=== PATIENT | female | born 1995 | race Caucasian/White ===

== ENCOUNTER → 2018-12-03 | Outpatient (CLI) | payer BC, MEDICAID ==
[~2018-12-03] MED LIST: ALBU8.5H2 IH; BUPR1FIL3; BUPR1FIL3 SL; CEFP500T4 PO; DCS100C PO; FLT05NA16 NSEACH; FLUO20CA42; GABA600T2 PO; GBPN100C; HYDR-3720 PO; IBP800T PO; LITH300C; LORA1TAB PO; PNV1CAPS13 PO; TPR25T PO; WELLBUTRIN; ZLP10T PO
--- NOTE | 2018-12-03 11:12 | Diagnostic Imaging Report ---
PROCEDURE: US Non-ob pelvis comp/trans. INDICATION: Right-sided pelvic pain TECHNIQUE: Multiple real time nguyen scale sonographic images were obtained of the pelvis transabdominally and transvaginally. CORRELATION STUDY: None FINDINGS: UTERUS: 7.5 x 4.5 x 3.9 cm. The uterus appears unremarkable. ENDOMETRIUM: Largely obscured by an apparent intrauterine contraceptive device. This results in rather significant amount of shadowing. RIGHT OVARY: 2.5 x 2.6 x 1.7 cm The right ovary has an unremarkable appearance. No concerning mass. Normal blood flow. LEFT OVARY: Not visualized, likely obscured by overlying bowel gas. There is a small amount of fluid in the posterior pelvic cul-de-sac IMPRESSION: 1. Intrauterine conceptive device, appearing to be in likely satisfactory position. 2. Small amount of pelvic fluid, within physiologic range. 3. Nonvisualization left ovary, likely obscured by overlying bowel gas. Dictated by: Dictated on workstation # [id number]
== END ==
LOC: RAD 10:01
PROVIDERS: ATTEND Obstetrics & Gynecology
DX: G89.29 Other chronic pain (principal); R10.2 Pelvic and perineal pain; R18.8 Other ascites; Z97.5 Presence of (intrauterine) contraceptive device
CPT/HCPCS: 76830; 76856

== ENCOUNTER → 2019-08-13 | Outpatient (CLI) | payer BC ==
--- NOTE | 2019-08-13 14:10 | Diagnostic Imaging Report ---
INDICATION: survey. TECHNIQUE: Multiple real-time grayscale images were obtained over the gravid uterus. COMPARISON: None. FINDINGS: There is a single live fetus in a transverse presentation with the head to the maternal right. The heart rate was recorded at 138 BPM. The placenta is posterior with no previa seen. The amniotic fluid volume is normal. The cervical length is 3.7 cm. The bladder, stomach, and brain are unremarkable. The kidneys are poorly visualized. In addition, the four-chamber heart, spine, and three-vessel cord with its insertion were poorly visualized due to patient body habitus. MEASUREMENTS: Biometrical measurements are as follows: Biparietal 4.79 cm, age 20 weeks 4 days. Head circumference 18.23 cm, age 20 weeks 5 days. Abdominal circumference 15.07 cm, age 20 weeks 3 days. Femur length 3.25 cm, age 20 weeks 1 days. Sonographic estimate age: 20 weeks 4 days. Sonographic estimated date of delivery: 12/27/19. Estimated Weight: 343 gm (+/- 50 gm). LMP percentile: 30%. heart rate: 138 beats per minute. number: 1 of 1. IMPRESSION: Single live IUP of 20 weeks 4 days gestational age with an estimated date of confinement sonographically of 12/27/2019. The survey is compromised due to patient body habitus. Followup could be performed. Dictated by: Dictated on workstation # [id number]
== END ==
LOC: RAD 09:38
PROVIDERS: ATTEND Obstetrics & Gynecology
DX: Z36.9 Encounter for antenatal screening, unspecified (principal); Z3A.20 20 weeks gestation of pregnancy
CPT/HCPCS: 76805

== ENCOUNTER 2019-12-17 05:34 | Outpatient (RCR) | payer BC ==
[~2019-12-17] VITALS: Ht 160 cm; Wt 131.8 kg
[~2019-12-17 05:34] MED LIST changes: +BUPR8TAB SL; +GBPN600T PO; +LURA40TA3 PO; +ONDN4T PO; +PNV1TABL9 PO; +RT-ALBUINH IH
[2019-12-20] MEDS ORDERED: OXYC1TAB87 PO (07:50)
[2019-12-20] MEDS ORDERED: DCS100C PO (07:50)
[2019-12-20] MEDS ORDERED: IBUP-844 PO (07:50)
== END 2019-12-17 10:30 | disposition home or self-care (01) ==
LOC: PREOP 05:34
PROVIDERS: ATTEND Obstetrics & Gynecology
DX: Z01.812 Encounter for preprocedural laboratory examination (principal); Z20.828 Contact with and (suspected) exposure to other viral communicable diseases
CPT/HCPCS: 87635

== ENCOUNTER 2019-12-20 06:04 | Inpatient (IN) | payer BC ==
[~2019-12-20] VITALS: Ht 160 cm; Wt 138.3 kg
[2019-12-20] VITALS (10 sets, daily range): BP systolic 110–142; BP diastolic 62–82
[2019-12-20] MEDS ORDERED: METOCLOPRAMIDE INJ 10 MG/2 ML (REGLAN) ONE (06:12)
[2019-12-20] MEDS ORDERED: CITRIC ACID/SOB CIT (BICITRA) 30 ML UDC ONE (06:12)
[2019-12-20] MEDS ORDERED: ceFAZolin 2 GM IV Premixed 50 ML ONE (06:12)
[2019-12-20] MEDS ORDERED: LACTATED RINGERS 1,000 ML IV ONE (06:13)
[2019-12-20] MEDS ORDERED: FAMOTIDINE 20MG/2ML IV (PEPCID) ONE (06:13)
--- NOTE | 2019-12-20 06:21 | NUR ---
VIPUL MARTÍNEZ presented to unit via ambulatory from home, accompanied by s.o., with c/o PREVIOUS c/s. VIPUL MARTÍNEZ weighed, gowned, voided, and to bed. EFHM and TOCO applied, VS taken. VIPUL MARTÍNEZ oriented to bed controls, call light, TV, heat, and A/C controls.
[2019-12-20] MEDS ORDERED: LACTATED RINGERS 1,000 ML IV PRN ×2 (06:27)
[2019-12-20] MEDS ORDERED: CATHETER FLUSH 10 ML SYR IV PRN (06:30)
[2019-12-20] MEDS ORDERED: METOCLOPRAMIDE INJ 10 MG/2 ML (REGLAN) IV ONE (06:30)
[2019-12-20] MEDS ORDERED: FAMOTIDINE 20MG/2ML IV (PEPCID) IV ONE (06:30)
[2019-12-20] MEDS ORDERED: CITRIC ACID/SOB CIT (BICITRA) 30 ML UDC PO ONE (06:30)
[2019-12-20] MEDS ORDERED: ceFAZolin 2 GM IV Premixed 50 ML IV ONE (06:30)
--- NOTE | 2019-12-20 06:36 | NUR ---
Dr. Estes at bedside.
[2019-12-20] MEDS ORDERED: fentaNYL INJECTION 100 MCG/2 ML AMP ONE (06:45)
[2019-12-20] MEDS ORDERED: OXYTOCIN PRE-MIX DRIP 1,000 ML IV ONE (06:45)
--- NOTE | 2019-12-20 07:10 | NUR ---
this RN into pt's room. pt sitting HF, rocking back & forth. s.o. attempting to calm/comfort pt. lab @ bedside, waiting to draw admission labs. cool wash cloths applied to head, neck by RN. 0619- up to JOSELUIS.
--- NOTE | 2019-12-20 07:17 | History & Physical-OB ---
OB - Chief Complaint & HPI Date/Time Date of Admission: Date of Admission: Dec 20, 2019 at 06:04 Date seen by a Provider: Dec 20, 2019 Time Seen by a Provider: 07:05 (07:05) Chief Complaint/History OB-Reason for Admission/Chief: Section Hx : 2 Hx Para: 1 Expected Date of Delivery: Dec 27, 2019 Gestational Age in Weeks: 39 Indication for : desires repeat Admission Nurse Assessment Rev: Yes History of Labs Opos Antibody neg RI RPR NR HBsAg NR HIV NR GC neg GBS neg Allergies and Home Medications Allergies Coded Allergies: Penicillins (Verified Allergy, Unknown, Hives, 12/20/19) amoxicillin (Verified Allergy, Unknown, Hives, 12/20/19) codeine (Verified Allergy, Unknown, 12/20/19) Home Medications Albuterol Sulfate 1 Puff Puff, 2 PUFF IH Q4H PRN for WHEEZING, (Reported) 1 PUFF = 90 MCG Buprenorphine HCl 8 Mg Tab.subl, 16-24 MG SL DAILY, (Reported) take 2-3 (8mg) tabs Gabapentin 600 Mg Tablet, 600 MG PO QID, (Reported) Lurasidone HCl 40 Mg Tablet, 40 MG PO HS, (Reported) Ondansetron HCl 4 Mg Tab, 4 MG PO Q6H PRN for NAUSEA/VOMITING, (Reported) Pnv Cmb#21/Iron/Folic Acid 1 Each Tablet, 1 EACH PO DAILY, (Reported) Patient Home Medication List Home Medication List Reviewed: Yes OB - History Hx of Present Care: Yes Ultrasounds: Normal mid trimester US Obstetrical Complications: None Medical Complications: None Delivery History Hx Blood Disorders: No Adverse Rxn to Tranfusion: No Patient Past Medical History n/a Social History/Family History HIV/AIDS: No Recent Infectious Disease Expo: No Sexually Transmitted Disease: No Alcohol Use: Denies Use Recreational Drug Use: No (AT TIMES FOR FUN, NOT LIKE THIS PER SISTER) Immunizations Tetanus Booster (TDap): Unknown Date of Influenza Vaccine: Nov 27, 2019 OB - Admission Exam Physical Exam Vitals: Vital Signs 12/20/19 06:45 Temp 36.1 Pulse 85 Resp 20 Pulse Ox 94 O2 Delivery Room Air HEENT: NCAT Heart: Rhythm Normal Lungs: Clear Abdomen: Gravid Extremities: Normal Reflexes: Normal Membranes: Intact Heart Rate: 130's Accelerations: Accelerations Present Decelerations: No Decelerations Short Term Variability: Present Residential Variability: Average (6-25) Contractions on Admission: 6-10 Minutes Apart Intensity: Mild Labs Laboratory Tests Test 12/20/19 06:45 Range/Units OB - Assessment/Plan/Diagnosis Assessment Assessment: section Admission Dx 23 yo @ 39 week Previous Tobacco use in Bipolar disorder Hx of Marijuana use in BMI 54 Admission Status: Inpatient Order (span 2 midnights) Reason for Inpatient Admission: Repeat at 39 weeks Plan Plan: Section NAMRATA PEARSON DO Dec 20, 2019 07:17
[2019-12-20] MEDS ORDERED: KETAMINE/NaCl 50 MG/5 ML SYRINGE (ED ONLY) ONE (07:28)
[2019-12-20 07:30] LABS: AMPHETAMINE SCREEN, URINE NEGATIVE (NEGATIVE); BARBITURATE SCREEN URINE NEGATIVE (NEGATIVE); BENZODIAZEPINES SCREEN URINE NEGATIVE (NEGATIVE); CANNABINOID SCREEN, URINE POSITIVE (NEGATIVE); COCAINE SCREEN URINE NEGATIVE (NEGATIVE); METHADONE STAT NEGATIVE (NEGATIVE); METHAMPHETAMINE SCREEN URINE S NEGATIVE (NEGATIVE); OPIATE SCREEN URINE NEGATIVE (NEGATIVE); OXYCODONE STAT POSITIVE (NEGATIVE); PROPOXYPHENE STAT NEGATIVE (NEGATIVE); TRICYCLIC ANTIDEPRESSANTS SCRE NEGATIVE (NEGATIVE)
[2019-12-20] MEDS ORDERED: ONDANSETRON 4 MG/2 ML (SDV) Z0FRAN IVP PRN (07:30)
[2019-12-20] MEDS ORDERED: MEASLES,MUMPS,RUBELLA 1 EA INJ SC SCH (07:30)
[2019-12-20] MEDS ORDERED: TETANUS,DIPTH,PERTUSS P/F (BOOSTRIX) 0.5 ML VIAL IM SCH (07:30)
--- NOTE | 2019-12-20 07:30 | NUR ---
lab here. admission labs collected. pt tolerated well.
[2019-12-20 07:42] LABS: BASOPHILS % (AUTO) 0 % (0-10); EOSINOPHILS # (AUTO) 0.2 10^3/uL (0.0-0.3); EOSINOPHILS % (AUTO) 2 % (0-10); HEMATOCRIT 38 % (35-52); HEMOGLOBIN 12.9 g/dL (11.5-16.0); LYMPHOCYTES # (AUTO) 2.4 10^3/uL (1.0-4.0); LYMPHOCYTES % (AUTO) 19 % (12-44); MEAN CORPUSCULAR HEMOGLOBIN 31 pg (25-34); MEAN CORPUSCULAR HGB CONC 34 g/dL (32-36); MEAN CORPUSCULAR VOLUME 92 fL (80-99); MEAN PLATELET VOLUME 9.9 fL (9.0-12.2); MONOCYTES # (AUTO) 0.6 10^3/uL (0.0-1.0); MONOCYTES % (AUTO) 5 % (0-12); NEUTROPHILS # (AUTO) 8.9 10^3/uL (1.8-7.8); NEUTROPHILS % (AUTO) 73 % (42-75); PLATELET COUNT 284 10^3/uL (130-400); WHITE BLOOD COUNT 12.2 10^3/uL (4.3-11.0)
--- NOTE | 2019-12-20 07:48 | Discharge Inst-Women's Service ---
Discharge Inst-Women's Serv Depart Medication/Instructions New, Converted or Re-Newed RX: RX on Chart Final Diagnosis POD 2 RLTCS Problems Reviewed?: Yes Consults/Follow Up Additional Follow Up: Yes Orders/Referrals Dr. Marie in 7-10 days and in 6 weeks Activity Activity: Activity as Tolerated Driving Instructions: No Driving for 1 Week NO SMOKING: NO SMOKING Nothing Inside Vagina: No Douching, No [place], No Tampons Diet Discharge Diet: No Restrictions Symptoms to Report to : Bleeding Excessive, Pain Increased, Fever Over 101 Degrees F, Vaginal Bleeding Increase, Questions/Concerns For Any Problems or Questions: Contact Your Physician Skin/Wound Care Infection Signs and Symptoms: Increased Redness, Foul Odor of Wound, Increased Drainage, Skin Itchy or Has a Rash, Increased Swelling, Temperature Above 101 F Operative Area Clean and Dry: Keep Incision Clean/Dry Stitches/[place]/Dermabond: Dermabond, Care of Stitches Bathing Instructions: NAMRATA Hunter DO Dec 20, 2019 07:48
--- NOTE | 2019-12-20 07:48 | NUR ---
monitors dc'd. pt ambulated to OB c/s room with OR staff @ side. monitor tracing reviewed. [id number]'s. difficulty tracing FHR r/t frequent maternal position changes and abd size. no ctx's noted.
[2019-12-20] MEDS ORDERED: OXYC1TAB87 PO (07:50)
[2019-12-20] MEDS ORDERED: DCS100C PO (07:50)
[2019-12-20] MEDS ORDERED: IBUP-844 PO (07:50)
[2019-12-20] MEDS: KETOROLAC 30 MG/ML VIAL IV SCH ×3 (08:50→21:09)
--- NOTE | 2019-12-20 09:55 | NUR ---
cancino catheter dc'd. 400cc urine noted. jose-care offered. FFu/0, moderate rubra noted. no clots expressed. v-pad in place.
--- NOTE | 2019-12-20 10:05 | NUR ---
pt transferred to room 308 via bed with this RN, and s/o @ side. familiarized with room surroundings. call light within reach.
[2019-12-20] MEDS: OXYTOCIN PRE-MIX DRIP 500 ML IV SCH (10:46)
[2019-12-20] MEDS: DOCUSATE SODIUM 100 MG (COLACE) CAP PO SCH ×2 (10:47→21:08)
[2019-12-20] MEDS: ENOXAPARIN 60 MG/0.6 ML (LOVENOX) SYR SC SCH ×2 (10:47→22:35)
[2019-12-20] MEDS: oxyCODONE/APAP 5/325MG (PERCOCET 5) TABLET PO PRN ×3 (10:48→19:53)
[2019-12-20] MEDS ORDERED: BUPIVACAINE 0.25% 30 ML (SENSORCAINE) VIAL ONE (11:33)
[2019-12-20] MEDS ORDERED: ONDANSETRON 4 MG/2 ML (SDV) Z0FRAN ONE (11:34)
[2019-12-20] MEDS ORDERED: KETOROLAC 30 MG/ML VIAL ONE (11:34)
[2019-12-20] MEDS ORDERED: CATHETER FLUSH 10 ML SYR IV SCH (14:00)
--- NOTE | 2019-12-20 14:01 | NUR ---
CM/SS visited with patient for social service consult. This sw does not believe a DCF report is warranted at this time. Home: The patient lives at home with her and her mother. She states they have been setting up for the baby all last week. Substance use: The patient reports that she has used [facility]. According to patient her last use was last week. The patient was positive for opioids; however, she was prescribed percocet. This is being managed by her with a lock box and hall. The patient is set up with [facility] intensive outpatient treatment. She has a zoom appointment set up for when she is discharged from the hospital. The patient follows with Dr. Johnson in [place] who is prescribing suboxone. 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 Patient verbalized that she is very motivated to not use substances. The patient reports it was a lapse due to complication family dynamics and health. Baby Supplies: Patient reports that she and her have everything that she needs. They recently attended a Pre-jadyn class and got a new car seat. They have diapers, formula, pack-n-play, bassinet, and clothes. Resources: patient is set up with [facility]. CM/SS provided information on [facility] and [facility]. They are interested in [facility] but want to look it over before having this sw make referral. No further needs.
--- NOTE | 2019-12-20 14:10 | OPERATIVE REPORT ---
DATE OF SERVICE: PREOPERATIVE DIAGNOSIS: 1. A 23-year-old G2, P1 at 39 weeks gestation. 2. Previous section. 3. Morbid obesity. 4. Bipolar disorder. 5. History of marijuana use during . POSTOPERATIVE DIAGNOSES: 1. A 23-year-old G2, P1 at 39 weeks gestation. 2. Previous section. 3. Morbid obesity. 4. Bipolar disorder. 5. History of marijuana use during . PROCEDURE: Repeat low transverse section. SURGEON: Tutu Pearson DO BUSINESS SERVICES ASSOCIATE: Estefany Cabral DNP, was necessary for manipulation and retraction throughout the procedure. ANESTHESIA: Spinal. ESTIMATED BLOOD LOSS: 500 mL. URINE OUTPUT: 50 mL clear at the end of the procedure. FLUIDS: 2000 mL lactated Ringer's solution. FINDINGS: A live male infant weighing 5 pounds even, Apgars of 8 and 9. Grossly normal appearing uterus, bilateral fallopian tubes and ovaries. SPECIMEN SENT: Placenta. INDICATIONS FOR PROCEDURE: This 23-year-old female is a patient who had sought care in my office. Her care was complicated by the use of Latuda for her bipolar disorder as well as tobacco use during the . The patient also had a significant weight gain and pregestational obesity, which progressively got worse throughout the as well. I discussed with the patient in detail throughout her care, the risk of repeat and risks of the procedure were discussed with the patient again in the preoperative area including risk of bleeding, infection, damage to surrounding structures including, but not limited to bowel, bladder, ureter, kidneys, possible need for reoperation, postoperative complications that may occur, risk from anesthesia, recovery timeframe and even . Everything was discussed with the patient in detail, consent was obtained in the preoperative area, the patient was taken to the operating room. OPERATIVE REPORT IN DETAIL: Once in the operating room, spinal anesthesia was found to be adequate, placed in supine position with leftward tilt, prepped and draped in normal sterile fashion. Timeout was performed and anesthesia was tested. I then make a Pfannenstiel skin incision through the previously existing scar using knife and carried down to the underlying fascia using Bovie cautery. The fascial incision was extended laterally using Bovie cautery. The superior aspect of fascial incision was then grasped with Porfirio clamps, tented upward and dissected off the underlying rectus muscles. The inferior aspect of the fascial incision was then grasped with Porfirio clamps, tented up and dissected off the underlying rectus muscles. Rectus muscles were then dissected down the midline using Hooks scissors, which exposed the peritoneum, which I entered bluntly and extended using blunt traction. Hemanth ring retractor was placed in the peritoneal incision, which offers excellent lateral sidewall retraction. I then identified the lower uterine segment, which was found to be thinned out and make a low transverse incision to the vesicouterine peritoneum and bluntly dissected off the lower uterine segment. I then proceeded with myotomy until membranes were visualized, at which point, I extended the uterine incision laterally and superiorly using bandage scissors. The infant was found in the breech presentation after amniotomy was performed and clear fluid was noted. The 's buttocks was elevated up the incision where it was delivered through the incision. The arms were delivered by sweeping them across the chest and the head is delivered by elevating the body and expressing flexion through the incision. Once the was delivered. Nares and oropharynx were bulb suctioned. The cord was doubly clamped and cut and was handed off to waiting nurses in attendance. Cord blood was collected, 3-vessel cord with intact placenta was delivered spontaneously thereafter. IV Pitocin was initiated to facilitate uterine contraction. Uterine fundus became firmer with bimanual massage. The uterus was then exteriorized and cleared of all endometrial clots and debris. I then proceeded with closing the uterine incision using 0 Vicryl suture in a running locked fashion. Second layer of imbricating 0 Monocryl was placed. Excellent hemostasis noted after doing this. I then placed the uterus back in the pelvis and copiously irrigated the pelvis using normal saline. There was no active bleeding noted from any of my dissection planes. I placed Interceed antiadhesive over my low transverse incision. I then removed the Hemanth ring retractor. I then proceeded to closing the peritoneum using 3-0 Vicryl suture in running fashion. Rectus muscles were reapproximated using 3-0 Vicryl suture in interrupted fashion. The fascia was reapproximated using 0 Vicryl suture in running fashion. Subcutaneous tissue was reapproximated using 3-0 plain, an interrupted subcutaneous stitch and the skin reapproximated using 4-0 Monocryl running subcuticular. Dermabond was applied to incision and sterile dressing was adhesed over this. The patient tolerated the procedure well and sent to recovery in stable condition. Lap and sponge counts were correct at the end of the procedure. Instrument counts correct as well. Two grams of Ancef given preoperatively for infection prophylaxis. Job ID: [id number] DocumentID: [id number] Dictated Date: 12/20/2019 09:02:33 Compliance Review Specialist Date: 12/20/2019 14:09:19 Dictated By: TUTU PEARSON DO
[2019-12-20] MEDS: NICOTINE 21 MG (NICODERM) PATCH TD SCH (15:16)
--- NOTE | 2019-12-20 16:32 | NUR ---
report given to VANESSA Dorantes.
[2019-12-20] MEDS ORDERED: RT-ALBUTEROL SULF 2.5 MG/3 ML PRE-MIX VIAL IH PRN (18:45)
--- NOTE | 2019-12-20 19:30 | NUR ---
patient assisted up to bathroom. Patient ambulated without difficulty, positive void noted. Scant bleeding.
[2019-12-20] MEDS: ADVAIR HFA 115/21 MCG INHALER 8 GM IH SCH (20:22)
[2019-12-21 00:22] VITALS: BP 129/84
[2019-12-21] MEDS: oxyCODONE/APAP 5/325MG (PERCOCET 5) TABLET PO PRN ×4 (00:24→20:11)
[2019-12-21] MEDS: KETOROLAC 30 MG/ML VIAL IV SCH (03:51)
[2019-12-21 03:55] VITALS: BP 119/59
[2019-12-21 05:21] LABS: BASOPHILS % (AUTO) 0 % (0-10); EOSINOPHILS # (AUTO) 0.2 10^3/uL (0.0-0.3); EOSINOPHILS % (AUTO) 2 % (0-10); HEMATOCRIT 34 % (35-52); HEMOGLOBIN 11.2 g/dL (11.5-16.0); LYMPHOCYTES # (AUTO) 2.7 10^3/uL (1.0-4.0); LYMPHOCYTES % (AUTO) 25 % (12-44); MEAN CORPUSCULAR HEMOGLOBIN 30 pg (25-34); MEAN CORPUSCULAR HGB CONC 33 g/dL (32-36); MEAN CORPUSCULAR VOLUME 93 fL (80-99); MONOCYTES # (AUTO) 0.7 10^3/uL (0.0-1.0); MONOCYTES % (AUTO) 7 % (0-12); NEUTROPHILS # (AUTO) 7.1 10^3/uL (1.8-7.8); NEUTROPHILS % (AUTO) 66 % (42-75); PLATELET COUNT 230 10^3/uL (130-400); WHITE BLOOD COUNT 10.8 10^3/uL (4.3-11.0)
[2019-12-21] MEDS: ADVAIR HFA 115/21 MCG INHALER 8 GM IH SCH ×2 (07:04→20:21)
--- NOTE | 2019-12-21 07:07 | NUR ---
PATIENTS CONY SAYS 9 PUFFS RT ONLY GAVE [address] URSULA JONES DOSE Addendum: 12/21/19 at 0727 by MARIBETH LIZ RT PER DR PEARSON CONTINUE PATIENTS HOME REGIMEN. AFTER TALKING TO PATIENT ABOUT IT SHE SATES SHE USES NEEDED 2-4 PUFFS
[2019-12-21] MEDS ORDERED: IBUPROFEN 600 MG (MOTRIN) TAB PO SCH (07:30)
--- NOTE | 2019-12-21 08:09 | Postpartum Progress Note ---
Note Note Day # 1 Subjective: Patient is without complaints. Ambulating, voiding. Tolerating a regular diet without nausea or vomiting. Normal lochia. Pain is well controlled with oral pain medications. Objective: Physical Exam: General - Alert and oriented, no apparent distress Abdomen - Soft, appropriately tender to palpation, non-distended, fundus firm at umbilicus Extremities - no edema, negative Humza's bilaterally Incision- c/d/i Assessment: POD 1 RLTCS BMI 54 Acute blood loss anemia Tobacco use Asthma Hx of sub abuse Plan: Routine care. Encourage breast feeding. Encourage ambulation. Ferrous sulfate supplementation. Plan for discharge tomorrow Vitals - Labs Vital Signs - I&O Vital Signs Date Time Temp Pulse Resp B/P (MAP) Pulse Ox O2 Delivery O2 Flow Rate FiO2 12/21/19 07:05 98 Room Air 12/21/19 03:55 36.3 78 18 119/59 (79) 96 Room Air 12/21/19 00:22 36.4 81 18 129/84 (99) 97 Room Air 12/20/19 19:40 97 Room Air 12/20/19 19:40 36.5 87 20 131/68 (89) 97 Room Air 12/20/19 18:25 36.5 78 20 120/62 (81) 99 Room Air 12/20/19 16:15 36.3 78 18 130/82 (98) 99 Room Air 12/20/19 09:59 35.9 67 18 120/68 (85) 99 Room Air 12/20/19 09:59 35.9 18 120/68 (85) 99 Room Air 12/20/19 09:45 35.8 16 119/79 (92) 100 Room Air 12/20/19 09:32 35.8 16 118/70 (86) 99 Room Air 12/20/19 09:16 36.4 16 110/66 (81) 98 Room Air I & O 12/21/19 07:00 Intake Total 2700 ml Output Total 1650 ml Balance 1050 ml Labs Laboratory Tests 12/21/19 05:10: White Blood Count 10.8, Red Blood Count 3.68L, Hemoglobin 11.2L, Hematocrit 34L, Mean Corpuscular Volume 93, Mean Corpuscular Hemoglobin 30, Mean Corpuscular Hemoglobin Concent 33, Red Cell Distribution Width 15.4H, Platelet Count 230, Mean Platelet Volume 10.0, Immature Granulocyte % (Auto) 1, Neutrophils (%) (Auto) 66, Lymphocytes (%) (Auto) 25, Monocytes (%) (Auto) 7, Eosinophils (%) (Auto) 2, Basophils (%) (Auto) 0, Neutrophils # (Auto) 7.1, Lymphocytes # (Auto) 2.7, Monocytes # (Auto) 0.7, Eosinophils # (Auto) 0.2, Basophils # (Auto) 0.0, Immature Granulocyte # (Auto) 0.1 Microbiology 12/20/19 MRSA Screen - Final, Complete MRSA not isolated NAMRATA PEARSON DO Dec 21, 2019 08:09
--- NOTE | 2019-12-21 08:30 | NUR ---
Dr. Marie here to see patient.
[2019-12-21] MEDS: DOCUSATE SODIUM 100 MG (COLACE) CAP PO SCH ×2 (08:53→21:55)
[2019-12-21] MEDS: ENOXAPARIN 60 MG/0.6 ML (LOVENOX) SYR SC SCH ×2 (08:56→21:54)
[2019-12-21] MEDS: NICOTINE PATCH REMOVAL TP SCH (08:56)
[2019-12-21] MEDS: NICOTINE 21 MG (NICODERM) PATCH TD SCH (08:56)
[2019-12-21 09:03] VITALS: BP 118/80
--- NOTE | 2019-12-21 09:03 | NUR ---
AM shift assessment completed and vital signs obtained, see interventions. Plan of care reviewed with patient. Patient verbalizes understanding and questions answered. Scheduled Lovenox SQ, Nicoderm Patch, and Colace PO given. Perocet 1 PO given for patient's c/o pain rated 5/10. Tdap administered, see EMAR. VIS provided to patient.
[2019-12-21] MEDS: OXYTOCIN PRE-MIX DRIP 500 ML IV SCH (10:41)
[2019-12-21] MEDS: IBUPROFEN 600 MG (MOTRIN) TAB PO SCH ×3 (10:44→21:55)
--- NOTE | 2019-12-21 14:58 | Anesthesia-Regional Post-Op ---
Regional Patient Condition Mental Status: Alert, Oriented x3 Circulation: Same as Pre-Op Headache: Absent Sensation: Full Recovery Motor Block: Absent Post Op Complications Complications None Follow Up Care/Instructions Patient Instructions None needed. Anesthesia/Patient Condition Patient is doing well, no complaints, stable vital signs, no apparent adverse anesthesia problems. No complications reported per nursing. FLETCHER QUEVEDO CRNA Dec 21, 2019 14:58
[2019-12-21 15:18] VITALS: BP 134/66
[2019-12-21 22:00] VITALS: BP 112/71
--- NOTE | 2019-12-22 00:14 | NUR ---
Was told in report patient would like percocet given scheduled instead of prn. RN into room to check on pt. Pt resting with eyes closed. s/o was awake at bedside. Introduced self to s/o. Pt continued to rest with eyes closed. Will hold percocet at this time.
[2019-12-22] MEDS: oxyCODONE/APAP 5/325MG (PERCOCET 5) TABLET PO PRN ×2 (04:38→09:35)
[2019-12-22] MEDS: IBUPROFEN 600 MG (MOTRIN) TAB PO SCH ×2 (04:39→09:35)
[2019-12-22 04:57] VITALS: BP 117/77
[2019-12-22] MEDS: NICOTINE PATCH REMOVAL TP SCH (09:35)
[2019-12-22] MEDS: NICOTINE 21 MG (NICODERM) PATCH TD SCH (09:35)
[2019-12-22] MEDS: DOCUSATE SODIUM 100 MG (COLACE) CAP PO SCH (09:35)
[2019-12-22] MEDS: ENOXAPARIN 60 MG/0.6 ML (LOVENOX) SYR SC SCH (09:35)
[2019-12-22 09:40] VITALS: BP 135/84
--- NOTE | 2019-12-22 09:40 | NUR ---
AM shift assessment completed and vital signs obtained, see interventions. Plan of care reviewed with patient. Patient verbalizes understanding and questions answered. Shower supplies provided. Scheduled Lovenox SQ, Colace PO, Motrin PO, and Nicoderm patch given at this time. Percocet 1 PO given for patient's c/o pain rated 3/10.
--- NOTE | 2019-12-22 10:30 | NUR ---
Dr. Marie here to see patient. New orders received.
--- NOTE | 2019-12-22 10:39 | Postpartum Progress Note ---
Note Note Day # 2 Subjective: Patient is without complaints. Ambulating, voiding. Tolerating a regular diet without nausea or vomiting. Normal lochia. Pain is well controlled with oral pain medications. Objective: Physical Exam: General - Alert and oriented, no apparent distress Abdomen - Soft, appropriately tender to palpation, non-distended, fundus firm at umbilicus Extremities - no edema, negative Humza's bilaterally Incision- c/d/i Assessment: POD 2 RLTCS Acute blood loss anemia BMI 54 Tobacco use Hx ilicit drug use Plan: Routine care. Encourage breast feeding. Encourage ambulation. Ferrous sulfate supplementation. Plan for discharge today Vitals - Labs Vital Signs - I&O Vital Signs Date Time Temp Pulse Resp B/P (MAP) Pulse Ox O2 Delivery O2 Flow Rate FiO2 12/22/19 09:40 36.4 78 20 135/84 (101) 97 Room Air 12/22/19 04:57 36.4 77 20 117/77 (90) 97 Room Air 12/21/19 22:00 36.5 73 20 112/71 (85) 97 Room Air 12/21/19 20:21 Room Air 12/21/19 15:18 36.4 79 20 134/66 (88) 96 Room Air Labs Microbiology 12/20/19 MRSA Screen - Final, Complete MRSA not isolated NAMRATA PEARSON DO Dec 22, 2019 10:39
[2019-12-22] MEDS: ADVAIR HFA 115/21 MCG INHALER 8 GM IH SCH (10:42)
--- NOTE | 2019-12-22 11:22 | NUR ---
Discharge instructions and medications reviewed with patient both written and verbally. Patient verbalizes understanding and questions answered. Written prescriptions provided to patient.
--- NOTE | 2019-12-22 11:30 | NUR ---
Patient discharged at this time to "Boarder" status.
== END 2019-12-22 11:30 | disposition home or self-care (01) | DRG 787 ==
LOC: LDRP 06:04
PROVIDERS: ADMIT Obstetrics & Gynecology; ATTEND Obstetrics & Gynecology
PROC: 10D00Z1 Extraction of Products of Conception, Low, Open Approach (ICD-10-PCS; principal; 2019-12-20 07:49)
DX: O34.211 Maternal care for low transverse scar from previous cesarean delivery (principal); D62 Acute posthemorrhagic anemia; O99.324 Drug use complicating childbirth; Z3A.39 39 weeks gestation of pregnancy; Z37.0 Single live birth; O99.334 Smoking (tobacco) complicating childbirth; F17.210 Nicotine dependence, cigarettes, uncomplicated; O90.81 Anemia of the puerperium; F12.90 Cannabis use, unspecified, uncomplicated; F31.9 Bipolar disorder, unspecified; O99.344 Other mental disorders complicating childbirth; J45.909 Unspecified asthma, uncomplicated; O99.52 Diseases of the respiratory system complicating childbirth
CPT/HCPCS: 36415; 80306; 85025; 86850; 86900; 86901; 87081; 90715; 94640; 94664; 94760

== ENCOUNTER 2022-03-10 22:51 | Emergency (ER) | payer BC, MEDICAID ==
[~2022-03-10] VITALS: Ht 160 cm; Wt 88.5 kg
[~2022-03-10 22:51] MED LIST changes: +ALBU8.5H6 IH; +DOCU-239 PO; +IBUP-844 PO; +LURA40TA2 PO; -LURA40TA3 PO; +OXYC1TAB87 PO; -RT-ALBUINH IH
[2022-03-10 22:56] VITALS: BP 179/119
[2022-03-10] MEDS ORDERED: GABA800T10 (23:01)
[2022-03-10] MEDS ORDERED: BUDE10.26 (23:01)
[2022-03-10] MEDS ORDERED: HYDR-700 (23:01)
[2022-03-10] MEDS ORDERED: BUPR1FIL19 (23:01)
--- NOTE | 2022-03-10 23:16 | ED Lower Extremity ---
General Chief Complaint: Lower Extremity Stated Complaint: LEFT FOOT PAIN Nursing Triage Note: c/o bruising/pain to left 5th toe x2 hours. unknown injury. Source: patient History of Present Illness Date Seen by Provider: Mar 10, 2022 Time Seen by Provider: 23:06 Initial Comments PT ARRIVES VIA POV FROM HOME C/O LEFT FOOT PAIN, ESPECIALLY LEFT 5TH TOE--TOE IS BRUISED STATES IT STARTED 2 HOURS AGO, AND "HAS NO IDEA WHAT HAPPENED" DOES NOT RECALL INJURING IT. NO PARESTHESIAS TOOK 4 IBUPROFEN AT 1930 FOR THIS PROBLE NO PRIOR INJURY TO THIS FOOT/TOE. LMP--2 WEEKS AGO. NORMAL. PCP: DR. DUARTE IN [place] Allergies and Home Medications Allergies Coded Allergies: Penicillins (Verified Allergy, Unknown, Hives, 12/20/19) amoxicillin (Verified Allergy, Unknown, Hives, 12/20/19) codeine (Verified Allergy, Unknown, 12/20/19) Patient Home Medication List Home Medication List Reviewed: Yes Albuterol Sulfate (Ventolin Hfa) 1 Puff Puff, 2 PUFF IH Q4H PRN for WHEEZING, (Reported) Entered as Reported by: LION AVENDAÑO on 12/12/19 130 Budesonide/Formoterol Fumarate (Budesonide-Formoterol 160-4.5) 160 Mcg-4.5 Mcg/Actuation Hfa.aer.ad, (Reported) Entered as Reported by: SALMA BURNS on 03/10/222300 Last Action: New Order Buprenorphine HCl/Naloxone HCl (Buprenorphine-Nalox 8-2Mg Film) 8 Mg-2 Mg Film, (Reported) Entered as Reported by: SALMA BURNS on 03/10/222300 Last Action: New Order Gabapentin (Gabapentin) 800 Mg Tablet, (Reported) Entered as Reported by: SALMA BURNS on 03/10/222300 Last Action: New Order Hydroxyzine HCl (Hydroxyzine HCl) 25 Mg Tablet, (Reported) Entered as Reported by: SALMA BURNS on 03/10/222300 Last Action: New Order Discontinued Medications Buprenorphine HCl (Buprenorphine HCl) 8 Mg Tab.subl, 16-24 MG SL DAILY, (Reported) Discontinued Reason: No Longer Taking Entered as Reported by: LION AVENDAÑO on 12/12/19 1301 Last Action: Discontinued Docusate Sodium (Dok) 100 Mg Capsule, 100 MG PO BID PRN for CONSTIPATION-1ST LINE Discontinued Reason: No Longer Taking Prescribed by: NAMRATA PEARSON on 12/20/19749 Last Action: Discontinued Gabapentin (Gabapentin) 600 Mg Tablet, 600 MG PO QID, (Reported) Discontinued Reason: No Longer Taking Entered as Reported by: LION AVENDAÑO on 12/12/19 130 Last Action: Discontinued Ibuprofen (Ibu) 600 Mg Tablet, 600 MG PO Q6HR Discontinued Reason: No Longer Taking Prescribed by: NAMRATA PEARSON on 12/20/19749 Last Action: Discontinued Lurasidone HCl (Latuda) 40 Mg Tablet, 40 MG PO HS, (Reported) Discontinued Reason: No Longer Taking Entered as Reported by: LION AVENDAÑO on 12/12/191300 Last Action: Discontinued Ondansetron HCl (Zofran) 4 Mg Tab, 4 MG PO Q6H PRN for NAUSEA/VOMITING, (Reported) Discontinued Reason: No Longer Taking Entered as Reported by: LION AVENDAÑO on 12/12/191300 Last Action: Discontinued Oxycodone HCl/Acetaminophen (Percocet 5-325 mg Tablet) 1 Each Tablet, 1-2 TAB PO Q6H PRN for PAIN-MODERATE (5-7) Discontinued Reason: No Longer Taking Prescribed by: NAMRATA PEARSON on 12/20/19749 Last Action: Discontinued Pnv Cmb#21/Iron/Folic Acid ( Complete Caplet) 1 Each Tablet, 1 EACH PO DAILY, (Reported) Discontinued Reason: No Longer Taking Entered as Reported by: LION AVENDAÑO on 12/12/191300 Last Action: Discontinued Review of Systems Constitutional: no symptoms reported LMP: Feb 24, 2022 Musculoskeletal: see HPI Skin: see HPI Psychiatric/Neurological: No Symptoms Reported Past Yoziveu-Zjpnww-Hnmvgt Hx Patient Social History Tobacco Use?: Yes Tobacco type used: Cigarettes Smoking Status: Current Everyday Smoker Substance use?: Yes Substance type: Opiates/Opioids, Misuse of prescript meds, Marijuana Additional substance use comme: 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 Substance frequency: Daily Alcohol Use?: No Pt feels they are or have been: No Immunizations Up To Date Tetanus Booster (TDap): Unknown First/Initial COVID19 Vaccinat: na Seasonal Allergies Seasonal Allergies: Yes Past Medical History Surgery/Hospitalization HX: chronic pain, Surgeries: Yes Respiratory: Yes Asthma Cardiac: No Neurological: Yes Headaches /Migraines Last Menstrual Period: Feb 24, 2022 Reproductive Disorders: No Female Reproductive Disorders: Denies Sexually Transmitted Disease: No HIV/AIDS: No Genitourinary: No Gastrointestinal: No Musculoskeletal: Yes (freq muscle spasms, ) Endocrine: No HEENT: No Loss of Vision: Denies Hearing Impairment: Denies Cancer: No Psychosocial: Yes (MOOD DISORDER; SUBSTANCE ABUSE. ) Anxiety, Bipolar, Depression Integumentary: No Blood Disorders: No Adverse Reaction/Blood Tranf: No Family Medical History Cancer Grandparents (Paternal grandmother-Ureathral cancer, breast cancer, and lung cancer) Cataract 03 FATHER Family history: Diabetes mellitus 03 FATHER Grandparents (Paternal Grandparents) Family history: Hypertension 03 MOTHER History of drug abuse 03 MOTHER (Opiate) 09 SISTER (Marijuana and Opiates) Kidney disease 03 FATHER Psychotic disorder 03 MOTHER No Family History of: Abdominal aortic aneurysm [place]'s disease Alcoholism Aphasia Cancer of colon Chest pain Congenital heart disease Congestive heart failure Cystic fibrosis Dementia Dysphagia Family history: Allergy Family history: Alzheimer's disease Family history: Arthritis Family history: Asthma Family history: Breast disease Family history: Cardiovascular disease Family history: Coronary thrombosis Family history: Gastrointestinal disease Family history: Glaucoma Family history: Osteoporosis Family history: Thyroid disorder Headache Hearing loss Heart disease Hereditary disease History of - anemia History of - disorder History of - respiratory disease Human immunodeficiency virus (HIV) seropositivity Hypercholesterolemia Infertile Malignant neoplasm of lung Myocardial infarction Parkinson's disease Prostate cancer Seizure disorder Stroke Tuberculosis Visual impairment Physical Exam Vital Signs Vital Signs - First Documented 03/10/22 22:56 Temp 36.8 Pulse 100 Resp 20 B/P (MAP) 179/119 (139) Pulse Ox 99 O2 Delivery Room Air Capillary Refill : Less Than 3 Seconds Height, Weight, BMI Height: 5'3.00" Weight: 233lbs. oz. 105.832933vv; 34.00 BMI Method:Stated General Appearance: WD/WN, no apparent distress, other (CONSTANT MOVEMENTS, ANXIOUS. WEARING SLIDE-TYPE HOUSE SHOES WITH OPEN TOES. ) Feet: left foot other (LEFT 5TH TOE WITH EXTENSIVE BRUISING, MILD SWELLING, MARKEDLY TENDER TO PALPATION. SENSATION IS INTACT, CAP REFILL INTACT. HAS DIFFUSE TENDERNESS TO ENTIRE FOOT, BUT NO OTHER BRUISING OR SWELLING OR EXTERNAL EVIDENCE OF TRAUMA TO ANY OTHER PART OF FOOT. ) Neurologic/Psychiatric: no motor/sensory deficits, alert, oriented x 3, other (ANXIOUS, CONSTANT MOVEMENTS) Skin: warm/dry, ecchymosis Procedures/Interventions Splinting and Joint Reduction : Splints: Post Op Shoe Hand-Made Type: SLICK TAPE TOES Progress/Results/Core Measures Results/Orders My Orders Orders - SUJATHA BEAR DO Foot, Left, 3 Views (03/10/22 23:10) Post-Op Shoe (03/10/22 23:31) Vital Signs/I&O 03/10/22 22:56 Temp 36.8 Pulse 100 Resp 20 B/P (MAP) 179/119 (139) Pulse Ox 99 O2 Delivery Room Air Blood Pressure Mean: 139 Progress Progress Note : Progress Note DISCUSSED XRAY FINDINGS, ANTICIPATED COURSE, SYMPTOMATIC TREATMENT, AND NEED FOR FOLLOW UP PT STATES SHE DOES NOT WANT ANY PAIN MEDICATION--WILL TAKE TYLENOL AND IBUPROFEN Diagnostic Imaging Comments XRAYS LEFT FOOT--NON-DISPLACED FRACTURE OF DISTAL PHALANX 5TH TOE. PENDING RADIOLOGIST REVIEW Reviewed: Reviewed by Me Departure Impression Primary Impression: Closed fracture of phalanx of left fifth toe Disposition: HOME, SELF-CARE Condition: Stable Departure-Patient Inst. Decision time for Depature: 23:30 Referrals: DOROTHY DUARTE DO (PCP/Family) Primary Care Physician Patient Instructions: Toe Fracture ED Add. Discharge Instructions: ICE TO AREA AT 20 MINUTE INTERVALS ELEVATE FOOT MUCH POSSIBLE SLICK TAPE 4TH AND 5TH TOES TOGETHER WEAR POST OP SHOE FOR COMFORT TYLENOL AND MOTRIN NEEDED FOR PAIN FOLLOW UP WITH DR. DUARTE IN 1 WEEK FOR FURTHER CARE--CALL IN THE MORNING TO SCHEDULE APPOINTMENT All discharge instructions reviewed with patient and/or family. Voiced understanding. SUJATHA BEAR DO Mar 10, 2022 23:16
--- NOTE | 2022-03-11 07:14 | Diagnostic Imaging Report ---
FOOT, LEFT, 3 VIEWS INDICATION: Left foot pain COMPARISON: None available. TECHNIQUE: Three non-weightbearing views of foot were obtained. FINDINGS: No fracture or traumatic malalignment. No evidence of metatarsal stress fracture. No soft tissue swelling. IMPRESSION: 1. No acute fracture or traumatic malalignment. Dictated by: Dictated on workstation # [id number]
== END 2022-03-10 23:39 | disposition home or self-care (01) ==
LOC: EDUNIT# 22:51 → ER 22:53
DX: S92.535A Nondisplaced fracture of distal phalanx of left lesser toe(s), initial encounter for closed fracture (principal); F17.210 Nicotine dependence, cigarettes, uncomplicated; Z88.5 Allergy status to narcotic agent; Z28.310 Unvaccinated for COVID-19; X58.XXXA Exposure to other specified factors, initial encounter
CPT/HCPCS: 73630